=== PATIENT | female | born 1945 | race Caucasian/White ===

== ENCOUNTER 2016-03-18 21:32 | Emergency (ER) | payer BC ==
--- NOTE | 2016-03-18 22:21 | RAD ---
EXAM DESCRIPTION: XR CHEST 2 VIEWS CLINICAL HISTORY: 70 y/o FSHORTNESS OF BREATH COMPARISON: 09/18/2015. FINDINGS: The cardiomediastinal silhouette appears unremarkable. Hyperexpanded lungs. Scarring in the lung apices. No consolidating infiltrates or pleural effusions. No pneumothorax. IMPRESSION: No acute abnormality is identified. COPD. Electronically signed by: Christophe Childers MD 03/18/2016 22:19
[2016-03-18] MEDS ORDERED: IPRATROPIUM/ALBUTEROL 3 ML VIAL NEB ONE ×2 (22:27→22:28)
[2016-03-18 22:33] VITALS: TEMP 98.3
[2016-03-18] MEDS ORDERED: BENZONATATE PERLES 100 MG CAP PO ONE (23:43)
[2016-03-18] MEDS ORDERED: methylPREDNISolone SODIUM SUC 125 MG/2 ML VIAL IV ONE (23:44)
[2016-03-18] MEDS ORDERED: methylPREDNISolone SODIUM SUC 125 MG/2 ML VIAL IM ONE (23:49)
--- NOTE | 2016-03-19 00:35 | ED.PDOC ---
History of Present Illness - General Chief Complaint: Respiratory Problem Stated Complaint: Cough Time Seen by Provider: 03/18/16 22:24 Source: patient, RN notes reviewed, Vital Signs reviewed Exam Limitations: no limitations - History of Present Illness Comments: Patient is a 71 y/o female with a history of COPD who has had a cough for several weeks. It is worsening and she is getting increasingly short of breath. She denies any fever or chills. The cough is non-productive. She has not taken anything for it. Timing/Duration: week - several, getting worse Cough Quality/Degree: moderate, dry cough Improving Factors: nothing Worsening Factors: nothing Associated Symptoms: shortness of breath, wheezing Allergies/Adverse Reactions: Allergies NO KNOWN ALLERGY Allergy (Verified 03/18/16 21:47) Home Medications: Ambulatory Orders Clopidogrel Bisulfate 75 mg PO DAILY 03/14/14 Conjugated Estrogens [Premarin] 1.25 mg PO QD 03/14/14 Gabapentin 600 mg PO BEDTIME 03/14/14 Lansoprazole 30 mg PO BID 03/14/14 Rosuvastatin Calcium [Crestor] 20 mg PO DAILY 03/14/14 Albuterol Sulfate [Proair Hfa] 2 puff INH Q6H PRN 09/16/15 Diclofenac Sodium [Diclofenac Sodium Dr] 50 mg PO BID 09/16/15 Gabapentin 300 mg PO .AFTERNOON 09/16/15 Metoprolol Succinate [Toprol Xl] 200 mg PO DAILY 09/16/15 Mirabegron [Myrbetriq] 25 mg PO DAILY 09/16/15 Albuterol Sulfate Nebs [Proventil Nebs] 2.5 mg INH QID 11/10/15 Azilsartan Medoxomil-Chlorthal [Edarbyclor] 1 tab PO DAILY 11/10/15 Denosumab [Prolia] 60 mg SC ONCE 11/10/15 [place] 3 Fatty Acids-Evening Pr [Retaine Om3] 1 cap PO DAILY 11/10/15 Potassium 99 mg PO DAILY 11/10/15 Tramadol HCl 50 mg PO PRN 11/10/15 Benzonatate 200 mg PO TID PRN #30 cap 03/19/16 Prednisone 50 mg PO DAILY #5 tab 03/19/16 Review of Systems - Review of Systems Constitutional: States: no symptoms reported EENTM: States: no symptoms reported Respiratory: States: cough, short of breath Cardiology: States: no symptoms reported Gastrointestinal/Abdominal: States: no symptoms reported Genitourinary: States: no symptoms reported Musculoskeletal: States: no symptoms reported Skin: States: no symptoms reported Neurological: States: no symptoms reported Endocrine: States: no symptoms reported Hematologic/Lymphatic: States: no symptoms reported Past Medical History (General) - Patient Medical History Hx Seizures: No Hx Stroke: No Hx Dementia: No Hx Asthma: No Hx of COPD: Yes Hx Cardiac Disorders: No Hx Congestive Heart Failure: No Hx Pacemaker: No Hx Hypertension: Yes Hx Thyroid Disease: No Hx Diabetes: No Hx Gastroesophageal Reflux: No Hx Renal Disease: No Hx Cancer: Yes - colon cancer,Renal Hx of HIV: No Hx Hepatitis C: No Hx MRSA: No Surgical History: Hysterectomy - Vaccination History Hx Influenza Vaccination: Yes Hx Pneumococcal Vaccination: Yes - Social History Hx Tobacco Use: Yes Hx Alcohol Use: No Hx Substance Use: No Hx Substance Use Treatment: No Hx Depression: No - Female History Patient is a Female of Child Bearing Age (10 -59 yrs old): No Family Medical History - Family History Mother Family History: No Known Physical Exam - Physical Exam General Appearance: Alert, Anxious, No apparent distress Eye Exam: bilateral normal ENT Exam: normal ENT inspection, hearing grossly normal Respiratory: no respiratory distress, rhonchi, wheezing Cardiovascular/Chest: regular rate, rhythm, no edema, no gallop, no murmur Gastrointestinal/Abdominal: normal bowel sounds, non tender, soft, no organomegaly, no pulsatile mass Extremity: normal range of motion Neurologic: alert, normal mood/affect, oriented x 3 Skin Exam: normal color Progress - Results/Orders Results/Orders: 03/18/16 03/18/16 21:35 22:30 Temperature 98.3 F Pulse Rate 96 H Pulse Rate [RA] 102 H Respiratory 24 20 Rate Blood Pressure 139/82 [RA] O2 Sat by Pulse 93 L 94 L Oximetry Laboratory Results WBC 12.0 K/mm3 (4.8-10.8) H 03/18/16 22:50 RBC 3.99 M/mm3 (4.20-5.40) L 03/18/16 22:50 Hgb 12.2 gm/dL (12.0-16.0) 03/18/16 22:50 Hct 37.5 % (36.0-47.0) 03/18/16 22:50 MCV 93.8 fl (81.0-99.0) 03/18/16 22:50 MCH 30.5 pg (27.0-31.0) 03/18/16 22:50 MCHC 32.5 g/dL (33.0-37.0) L 03/18/16 22:50 RDW 13.3 % (11.5-14.5) 03/18/16 22:50 Plt Count 258 K/mm3 (130-400) 03/18/16 22:50 MPV 7.6 fl (7.40-10.4) 03/18/16 22:50 Absolute Neuts (auto) 9.20 K/uL (1.8-6.8) H 03/18/16 22:50 Absolute Lymphs (auto) 1.30 K/uL (1.0-3.4) 03/18/16 22:50 Absolute Monos (auto) 0.60 K/uL (0.2-0.8) 03/18/16 22:50 Absolute Eos (auto) 0.90 K/uL (0.0-0.4) H 03/18/16 22:50 Absolute Basos (auto) 0.10 K/uL (0.0-0.1) 03/18/16 22:50 Neutrophils % 76.4 % (42.0-78.0) 03/18/16 22:50 Lymphocytes % 10.4 % (20.0-50.0) L 03/18/16 22:50 Monocytes % 5.3 % (2.0-9.0) 03/18/16 22:50 Eosinophils % 7.2 % (1.0-5.0) H 03/18/16 22:50 Basophils % 0.7 % (0.0-2.0) 03/18/16 22:50 Sodium 134 mmol/L (135-145) L 03/18/16 22:50 Potassium 4.4 mmol/L (3.6-5.0) 03/18/16 22:50 Chloride 103 mmol/L (101-111) 03/18/16 22:50 Carbon Dioxide 23 mmol/L (21-31) 03/18/16 22:50 Anion Gap 12.4 (12-18) 03/18/16 22:50 BUN 23 mg/dL (7-18) H 03/18/16 22:50 Creatinine 1.75 mg/dL (0.6-1.3) H 03/18/16 22:50 BUN/Creatinine Ratio 13.1 (10-20) 03/18/16 22:50 Random Glucose 130 mg/dL (70-105) H 03/18/16 22:50 Serum Osmolality 273.7 mOsm/L (275-295) L 03/18/16 22:50 Calcium 8.5 mg/dL (8.4-10.2) 03/18/16 22:50 Total Bilirubin 0.4 mg/dL (0.2-1.0) 03/18/16 22:50 AST 48 IU/L (10-42) H 03/18/16 22:50 ALT 44 IU/L (10-60) 03/18/16 22:50 Alkaline Phosphatase 145 IU/L (42-121) H 03/18/16 22:50 Serum Total Protein 7.3 gm/dL (6.4-8.2) 03/18/16 22:50 Albumin 3.6 g/dl (3.2-5.5) 03/18/16 22:50 Globulin 3.7 gm/dL (2.3-3.5) H 03/18/16 22:50 Albumin/Globulin Ratio 1.0 (1.1-1.9) L 03/18/16 22:50 Serum HCG, Qual Cancelled 03/18/16 23:00 - EKG/XRAY/CT XRAY: chest Xray Comments: COPD, no acute process Departure - Departure Clinical Impression: COPD exacerbation Time of Disposition: 00:37 Disposition: Discharge to Home or Self Care Condition: Good Departure Forms: ED Discharge - Pt. Copy, Patient Portal Self Enrollment Instructions: Chronic Obstructive Pulmonary Disease, DI for Chronic Obstructive Pulmonary Disease Diet: resume usual diet Referrals: Galdino Mandel MD [Primary Care Provider] - 1-2 Weeks Prescriptions: Benzonatate 200 mg PO TID PRN #30 cap PRN Reason: Cough Prednisone 50 mg PO DAILY #5 tab Home Medications: Ambulatory Orders Clopidogrel Bisulfate 75 mg PO DAILY 03/14/14 Conjugated Estrogens [Premarin] 1.25 mg PO QD 03/14/14 Gabapentin 600 mg PO BEDTIME 03/14/14 Lansoprazole 30 mg PO BID 03/14/14 Rosuvastatin Calcium [Crestor] 20 mg PO DAILY 03/14/14 Albuterol Sulfate [Proair Hfa] 2 puff INH Q6H PRN 09/16/15 Diclofenac Sodium [Diclofenac Sodium Dr] 50 mg PO BID 09/16/15 Gabapentin 300 mg PO .AFTERNOON 09/16/15 Metoprolol Succinate [Toprol Xl] 200 mg PO DAILY 09/16/15 Mirabegron [Myrbetriq] 25 mg PO DAILY 09/16/15 Albuterol Sulfate Nebs [Proventil Nebs] 2.5 mg INH QID 11/10/15 Azilsartan Medoxomil-Chlorthal [Edarbyclor] 1 tab PO DAILY 11/10/15 Denosumab [Prolia] 60 mg SC ONCE 11/10/15 [place] 3 Fatty Acids-Evening Pr [Retaine Om3] 1 cap PO DAILY 11/10/15 Potassium 99 mg PO DAILY 11/10/15 Tramadol HCl 50 mg PO PRN 11/10/15 Benzonatate 200 mg PO TID PRN #30 cap 03/19/16 Prednisone 50 mg PO DAILY #5 tab 03/19/16 Additional Instructions: Follow up with PCP if symptoms persist or ED if symptoms worsen.
[2016-03-19 01:13] VITALS: BP 110/63; O2SAT 95
== END 2016-03-19 01:00 | disposition home or self-care (01) ==
LOC: ER 21:32
DX: J44.1 Chronic obstructive pulmonary disease with (acute) exacerbation (principal); I10 Essential (primary) hypertension; Z85.038 Personal history of other malignant neoplasm of large intestine; Z85.53 Personal history of malignant neoplasm of renal pelvis; Z87.891 Personal history of nicotine dependence; Z79.899 Other long term (current) drug therapy

== ENCOUNTER 2016-12-06 07:08 | Emergency (ER) | payer BC ==
[2016-12-06 07:20] VITALS: TEMP 97.9
[2016-12-06] MEDS ORDERED: IPRATROPIUM/ALBUTEROL 3 ML VIAL NEB ONE ×2 (07:20→07:30)
[2016-12-06] MEDS ORDERED: predniSONE 20 MG TAB PO ONE (07:30)
--- NOTE | 2016-12-06 08:00 | RAD ---
EXAM DESCRIPTION: Chest,2 Views CLINICAL HISTORY: sob, copd COMPARISON: October 01, 2016. FINDINGS: 2 views of the thorax. No consolidation, effusion or pneumothorax is demonstrated. Heart and mediastinum within normal limits. No acute osseous pathology. IMPRESSION: Negative chest. Electronically signed by: Abdi Greenberg MD 12/06/2016 7:59 AM CDT
--- NOTE | 2016-12-06 08:15 | ED.PDOC ---
History of Present Illness - General Chief Complaint: Respiratory Problem Stated Complaint: Breathing difficulties Time Seen by Provider: 12/06/16 07:30 Source: patient Exam Limitations: no limitations - History of Present Illness Initial Comments: the patient is a 71-year-old female presenting to the emergency room with progressive shortness of breath and cough along with a mild sore throat for the last 24-36 hours. She does have a history of significant COPD. She has been on steroids on several occasions for it. The patient's wheezing can be heard across the room and her increased work of breath is obvious. She has maintaining oxygen saturations greater than 90%. She does not require any supplemental oxygen. She is not having chest pain. No fevers. No vomiting. No evidence of any sepsis. Cough is minimally productive. Timing/Duration: 24 hours Severity: moderate Improving Factors: nothing Worsening Factors: nothing Associated Symptoms: malaise, shortness of breath Allergies/Adverse Reactions: Allergies NO KNOWN ALLERGY Allergy (Verified 12/06/16 07:16) Home Medications: Ambulatory Orders Clopidogrel Bisulfate 75 mg PO DAILY 03/14/14 Gabapentin 600 mg PO BEDTIME 03/14/14 Lansoprazole 30 mg PO BID 03/14/14 Albuterol Sulfate [Proair Hfa] 2 puff INH Q6H PRN 09/16/15 Diclofenac Sodium [Diclofenac Sodium Dr] 25 mg PO BID 09/16/15 Metoprolol Succinate [Toprol Xl] 200 mg PO DAILY 09/16/15 Mirabegron [Myrbetriq] 25 mg PO DAILY 09/16/15 Albuterol Sulfate Nebs [Proventil Nebs] 2.5 mg INH QID 11/10/15 Azilsartan Medoxomil-Chlorthal [Edarbyclor] 1 tab PO DAILY 11/10/15 Denosumab [Prolia] 60 mg SC .[id number] 11/10/15 [place] 3 Fatty Acids-Evening Pr [Retaine Om3] 1 cap PO DAILY 11/10/15 Estrogens, Conjugated [Premarin] 0.9 mg PO DAILY 12/06/16 Lansoprazole 30 mg PO BID 12/06/16 Rosuvastatin Calcium 20 mg PO DAILY 12/06/16 Tiotropium [place]-Olodaterol [Stiolto Respimat 2.5-2.5 Mcg/Act] 2 puff INH DAILY 12/06/16 traMADol 37.5MG/APAP 325MG [Ultracet] 1 tab PO TID PRN 12/06/16 Review of Systems - Review of Systems Constitutional: States: malaise EENTM: States: throat pain - mild Respiratory: States: cough, short of breath, wheezing Cardiology: States: no symptoms reported Gastrointestinal/Abdominal: States: no symptoms reported Genitourinary: States: no symptoms reported Musculoskeletal: States: no symptoms reported Skin: States: no symptoms reported Neurological: States: no symptoms reported Endocrine: States: no symptoms reported Past Medical History (General) - Patient Medical History Hx Seizures: No Hx Stroke: Yes - TIAs Hx Dementia: No Hx Asthma: No Hx of COPD: Yes Hx Cardiac Disorders: No Hx Congestive Heart Failure: No Hx Pacemaker: No Hx Hypertension: Yes Hx Thyroid Disease: No Hx Diabetes: No Hx Gastroesophageal Reflux: No Hx Renal Disease: No Hx Cancer: Yes - kidney, colon Hx of HIV: No Hx Hepatitis C: No Hx MRSA: No - Vaccination History Hx Influenza Vaccination: Yes - 2015 Hx Pneumococcal Vaccination: Yes - unknown date - Social History Hx Tobacco Use: Yes - Quit 03/15/2016 Hx Alcohol Use: No Hx Substance Use: No Hx Substance Use Treatment: No Hx Depression: No Family Medical History - Family History Mother Family History: No Known Living Status: Age at (years of age): 89 Cause of : CHF Hx Family Hypertension: Yes Physical Exam - Physical Exam General Appearance: Alert, No apparent distress, Other - obvious increased work of breathing Eye Exam: bilateral normal Ears, Nose, Throat: hearing grossly normal, normal ENT inspection, pharyngeal erythema - mild Neck: full range of motion, supple Respiratory: chest non-tender, decreased breath sounds, accessory muscle use, rhonchi, wheezing Cardiovascular/Chest: normal peripheral pulses, regular rate, rhythm, no edema Peripheral Pulses: radial,right: 2+, radial,left: 2+, dorsalis pedis,right: 2+, dorsalis pedis,left: 2+ Gastrointestinal/Abdominal: non tender, soft Rectal Exam: deferred Back Exam: normal inspection, no CVA tenderness, no vertebral tenderness Extremity: normal range of motion, non-tender, normal inspection, no pedal edema , normal capillary refill Neurologic: fuller brush worker II-XII nml as tested, alert, normal mood/affect, oriented x 3 Skin Exam: normal color Comments: Vital Signs - 24 hr 12/06/16 12/06/16 12/06/16 07:12 07:30 08:13 Temperature 97.9 F Pulse Rate 88 Pulse Rate [ 83 84 pulse ox] Respiratory 22 20 20 Rate Blood Pressure 158/89 133/67 [right brachial ] O2 Sat by Pulse 92 L 90 L 92 L Oximetry Progress - Progress Progress: 12/06/16 08:16 the patient is a 71-year-old female with a history of COPD undergoing a significant COPD exacerbation. The patient has been dosed with prednisone and received [id number] DuoNeb's. She is breathing more easily. She is maintaining her oxygen saturations. X-ray shows no definitive evidence of any lobar pneumonia. No evidence of sepsis. At this point in time there are no additional measures that would be taken on this patient that would benefit her additionally as an inpatient. The patient will be placed on oral azithromycin for 5 days as well as oral prednisone at 20 mg daily for 7 days. Additionally she is being written for DuoNeb nebulizer treatments to be used every 2-3 hours for the next couple of days and then as needed. I do want her to follow-up with her primary care doctor tomorrow for reevaluation before the weekend. If she worsens in any significant way then she will need to come into the hospital. ER warnings were given. - Results/Orders Results/Orders: chest x-ray shows no acute changes. Rapid strep and rapid flu are negative. Departure - Departure Clinical Impression: COPD with exacerbation Disposition: Discharge to Home or Self Care Condition: Fair Departure Forms: ED Discharge - Pt. Copy, Patient Portal Self Enrollment Diet: regular diet Activity: increase activity as tolerated Referrals: Galdino Mandel MD [Primary Care Provider] - 1-2 Weeks Home Medications: Ambulatory Orders Clopidogrel Bisulfate 75 mg PO DAILY 03/14/14 Gabapentin 600 mg PO BEDTIME 03/14/14 Lansoprazole 30 mg PO BID 03/14/14 Albuterol Sulfate [Proair Hfa] 2 puff INH Q6H PRN 09/16/15 Diclofenac Sodium [Diclofenac Sodium Dr] 25 mg PO BID 09/16/15 Metoprolol Succinate [Toprol Xl] 200 mg PO DAILY 09/16/15 Mirabegron [Myrbetriq] 25 mg PO DAILY 09/16/15 Albuterol Sulfate Nebs [Proventil Nebs] 2.5 mg INH QID 11/10/15 Azilsartan Medoxomil-Chlorthal [Edarbyclor] 1 tab PO DAILY 11/10/15 Denosumab [Prolia] 60 mg SC .[id number] 11/10/15 [place] 3 Fatty Acids-Evening Pr [Retaine Om3] 1 cap PO DAILY 11/10/15 Estrogens, Conjugated [Premarin] 0.9 mg PO DAILY 12/06/16 Lansoprazole 30 mg PO BID 12/06/16 Rosuvastatin Calcium 20 mg PO DAILY 12/06/16 Tiotropium [place]-Olodaterol [Stiolto Respimat 2.5-2.5 Mcg/Act] 2 puff INH DAILY 12/06/16 traMADol 37.5MG/APAP 325MG [Ultracet] 1 tab PO TID PRN 12/06/16 Additional Instructions: the patient is a 71-year-old female with a history of COPD undergoing a significant COPD exacerbation. The patient has been dosed with prednisone and received [id number] DuoNeb's. She is breathing more easily. She is maintaining her oxygen saturations. X-ray shows no definitive evidence of any lobar pneumonia. No evidence of sepsis. At this point in time there are no additional measures that would be taken on this patient that would benefit her additionally as an inpatient. The patient will be placed on oral azithromycin for 5 days as well as oral prednisone at 20 mg daily for 7 days. Additionally she is being written for DuoNeb nebulizer treatments to be used every 2-3 hours for the next couple of days and then as needed. I do want her to follow-up with her primary care doctor tomorrow for reevaluation before the weekend. If she worsens in any significant way then she will need to come into the hospital. ER warnings were given. prescriptions were written out.
[2016-12-06 08:28] VITALS: BP 109/68; O2SAT 90
== END 2016-12-06 08:15 | disposition home or self-care (01) ==
LOC: ER 07:08
DX: J44.1 Chronic obstructive pulmonary disease with (acute) exacerbation (principal); I10 Essential (primary) hypertension; Z87.891 Personal history of nicotine dependence; Z86.73 Personal history of transient ischemic attack (TIA), and cerebral infarction without residual deficits; Z79.899 Other long term (current) drug therapy; Z79.02 Long term (current) use of antithrombotics/antiplatelets
CPT/HCPCS: 71020; 87070; 87502; 87651; 94640; J7512; J7620

== ENCOUNTER → 2017-08-01 | Outpatient (CLI) | payer BC | LOC: GMAJ 14:26 | PROVIDERS: ATTEND Family Medicine | DX: Z00.00 Encounter for general adult medical examination without abnormal findings (principal) ==

== ENCOUNTER → 2018-01-29 | Outpatient (CLI) | payer BC ==
--- NOTE | 2018-01-29 14:17 | CT ---
Procedure: CT LUNG SCREENING Exam Date: 11/29/2017. Ordering Provider: Lucho Hughes Clinical Indication: PERSONAL HISTORY OF TOBACCO DEPENDENCY This patient meets eligibility criteria for low-dose CT lung cancer screening. Comparison: CTA chest 03/14/2014. Technique: Using a multislice scanner, sequential helical axial imaging was obtained in the thorax, 2.5 mm thickness, 2.5 mm separation, from the level of the thoracic inlet through the lung bases without IV contrast. A low dose protocol was utilized: CTDI: 1.76 mGy. 120. kVp. 45 mA. 2D sagittal and coronal reconstructed images, 6.0 mm thickness, were obtained. This exam was performed according to our departmental dose optimization program which includes use of automated exposure control, adjustment of the mA and/or kV according to patient size and/or use of iterative reconstruction technique. Nodule measurements under 10 mm are given as mean value of 3 axes diameters. FINDINGS: Lungs and large airways: 6 mm solid nodule, circumscribed walter, posterior right apex with extension to the pleura on lung axial image 28. Posterior densities in the recess of the right lower lobe most likely atelectasis. Subpleural solid nodule with circumscribed walter medial left lower lobe on axial image 94, 3 mm diameter. Semisolid nodule lateral left upper lobe subpleural approximately 3 mm with 3 other nodules similar size and density images 33, 36 and 37. Minimal dependent atelectasis posterior left lower lobe in the posterior recess. No larger nodules, no masses or infiltrates. Pleura: Bilateral focal areas of pleural thickening. No effusion or pneumothorax. Mediastinum and sindy: evaluation limited by low dose technique and lack of IV contrast. Small mediastinal lymph nodes, no large soft tissue masses. Heart and great vessels: Coronary artery calcifications. Atherosclerotic calcifications in the aortic arch, descending thoracic aorta, and proximal brachiocephalic vessels. Chest wall, lower neck, axillae: Evaluation also limited by same factors as described above. Collapsed left breast implant retroglandular right breast implant normal size and position. Small thyroid gland. Upper abdomen: Negative. Osseous structures: Evaluation limited by low dose MIP technique. Minimal spondylosis in the thoracic spine. No lytic or blastic lesions. IMPRESSION: 6 mm solid nodule in the posterior right upper lobe most likely associated with pleural thickening which is also visualized adjacent pleura. Similar tissue noted on prior chest CT scan in 2013. Change in size probably secondary change in technique. Other nodules seen bilaterally are 3 mm or less in diameter. Bilateral bibasilar parenchymal density in the bilateral lower lung recesses is stable. No large or abnormal nodules, no infiltrates or masses bilaterally. No pleural effusion or pneumothorax. [facility] Best Practice recommendations according to lung RADS system. Please see below for Lung RADS category and FOLLOW-UP.* *Lung RADS category Category 3 - Probably benign (1-2% malignancy probability), short term follow-up suggested. Nodules: Solid nodule(s) 6mm to less than 8mm at baseline, or new 4mm to under 6mm solid nodule. Part solid nodule total diameter 6mm to less than 8mm with solid component less than 6mm, or new less than 6mm total diameter nodule] [ground glass nodule(s) 20mm or greater. Follow-up: Please return for a Low Dose Chest CT in 6 months for re-evaluation. Electronically signed by: Freeman Sher MD 01/29/2018 2:15 PM [facility]
== END ==
LOC: CT 08:00
PROVIDERS: ATTEND Family Medicine
DX: Z87.891 Personal history of nicotine dependence (principal); R91.8 Other nonspecific abnormal finding of lung field

== ENCOUNTER → 2018-02-24 | Outpatient (CLI) | payer MEDICARE, OTHER | LOC: GMAJ 16:50 | PROVIDERS: ATTEND Family Medicine | DX: M18.0 Bilateral primary osteoarthritis of first carpometacarpal joints (principal) ==

== ENCOUNTER → 2018-07-16 | Outpatient (CLI) | payer MEDICARE, OTHER ==
--- NOTE | 2018-07-16 10:46 | CT ---
EXAM DESCRIPTION: Chest w/o Contrast CLINICAL HISTORY: 73 years Female, LUNG NODULE, PERSONAL HISTORY OF TOBACCO USE COMPARISON: CT lung screening 01/29/2018. CTA chest 03/06/2014. TECHNIQUE: CT images through the chest without IV contrast. Multiplanar reformations were provided. This exam was performed according to our departmental dose-optimization program, which includes automated exposure control, adjustment of the mA and/or kV according to patient size and/or use of iterative reconstruction technique. CT CHEST FINDINGS: Heart and mediastinum: Heart is normal size. No severe pericardial mild atherosclerosis. Esophagus is unremarkable. No mediastinal lymphadenopathy. Evaluation for hilar lymphadenopathy limited without intravenous contrast. Thyroid Gland: Normal. Lungs: Stable 7 mm right upper lobe pulmonary nodule on image 28. A group of 3 pulmonary nodules within the lateral left upper lobe on image 38 measuring no greater than 4 mm as before. Stable group of 2 pulmonary nodules in the medial left lower lobe on image 97 measuring no greater than 4 mm. 2 mm nodule in the lateral left lower lobe on image 95 appears new when compared to 01/29/2018. Airways: No filling defects or bronchiectasis. Pleura: No effusion or pneumothorax. Subphrenic Structures: Surgical clips within the right renal nephrectomy site. Musculoskeletal and Soft Tissues: Stable collapsed and partially calcified left breast implant. Right breast implant is maintained. No axillary lymphadenopathy. Chronic right second, third, fourth rib fractures. No acute fracture acute compression deformity. No aggressive appearing osseous lesion. Advanced cervical spondylosis at C6-C7. IMPRESSION: 1. No acute abnormality of the chest. 2. Bilateral pulmonary nodules are unchanged when compared to 01/29/2018 with the exception of a new 2 mm pulmonary nodule in the left lower lobe as above. Recommend follow-up per the Fleischner guidelines below. 3. Other chronic findings as above. Multiple Solid lung nodules 6-8 mm: Follow up management based on most suspicious nodule. In a low-risk patient, recommend a non-contrast Chest CT at 3-6 months, then consider another non-contrast Chest CT at 18-24 months. In a high-risk patient, recommend a non-contrast Chest CT at 3-6 months, then another non-contrast Chest CT at 18-24 months. These guidelines do not apply to patients younger than 35 years, immunocompromised patients, and patients with cancer. F/u in patients with significant comorbidities as clinically warranted. For lung cancer screening, adhere to Lung-RADS guidelines. Reference: Radiology. 2017 Sep; 284(1):228-24 Electronically signed by: Joshua Eckert MD 07/16/2018 10:44 AM CDT
== END ==
LOC: CT 08:00
PROVIDERS: ATTEND Family Medicine
DX: Z87.891 Personal history of nicotine dependence (principal); R91.1 Solitary pulmonary nodule

== ENCOUNTER → 2019-01-20 | Outpatient (CLI) | payer MEDICARE, OTHER ==
--- NOTE | 2019-01-20 10:48 | CT ---
EXAM DESCRIPTION: Head CT without contrast CLINICAL HISTORY: HEADACHE COMPARISON: Previous CT head July 26, 2009, previous MRI brain August 31, 2011 TECHNIQUE: Noncontrast head CT was performed with routine protocol. FINDINGS: Normal gaffney-white matter differentiation. Ventricles and sulci are normal for age. No worrisome change compared to previous studies. No high density hemorrhage, focal edema or shift of the midline. No sulcal effacement. Normal orbital contents. Basilar cisterns appear clear. Intact calvarium with no fracture or lytic lesion. Normal aeration of tympanic cavities and mastoid air cells. No fluid levels in the paranasal sinuses. Skull base appears intact. Symmetrical internal auditory canals. IMPRESSION: No acute intracranial pathologic process. This exam was performed according to our departmental dose-optimization program, which includes automated exposure control, adjustment of the mA and/or kV according to patient size and/or use of iterative reconstruction technique. Total DLP equals 752.48 mGycm. Electronically signed by: Teddy Colon MD 01/20/2019 10:04 AM [facility]
== END ==
LOC: CT 09:30
PROVIDERS: ATTEND Family Medicine
DX: R51 Headache (principal)

== ENCOUNTER → 2019-11-25 | Outpatient (CLI) | payer MEDICARE, OTHER ==
--- NOTE | 2019-11-26 14:53 | CT ---
Procedure: CT LUNG SCREENING Exam Date: November 25, 2019. Ordering Provider: Lucho Hughes Clinical Indication: PERSONAL HISTORY OF TOBACCO DEPENDENCE smoking cessation x4 years. 30 pack-year history. This patient meets eligibility criteria for low-dose CT lung cancer screening. Comparison: CT scan of the chest without contrast July 2018. Lung RADS category 3. CT low-dose lung cancer screening examination of January 2018. Technique: Using a multislice scanner, sequential helical axial imaging was obtained in the thorax, 2.5 mm thickness, 2.5 mm separation, from the level of the thoracic inlet through the lung bases without IV contrast. A low dose protocol was utilized for BMI less than 30: BMI: 25.8. CTDI: 1.76 mGy. 120. kVp. 45 mA. DLP 66 mGy-cm. 2D sagittal and coronal reconstructed images, 6.0 mm thickness, were obtained. This exam was performed according to our departmental dose optimization program which includes use of automated exposure control, adjustment of the mA and/or kV according to patient size and/or use of iterative reconstruction technique. Nodule measurements under 10 mm are given as mean value of 3 axes diameters. FINDINGS: Lungs and large airways: Subpleural solid nodule 3 mm left lower lobe on axial series 2, #87 is stable. 2-3 mm subpleural nodules abutting each other in the subpleural medial left lower lobe on images 2/88 and 2/89 stable since the prior study. 2 similar solid subpleural nodules approximately 3 mm diameter, lateral left upper lobe on image 2/32. Smaller, subpleural nodules in the anterior left upper lobe in the superior segment of the left lower lobe on images 2/41 and 2/47. Similar size groundglass nodular subpleural lateral left upper lobe 2/51 and also lateral subpleural groundglass nodule in the inferior lingula similar size. Posterior right apical focal pleural thickening/scar is stable on image 2/22 posterior dependent atelectasis more right base than left. No abnormal/new nodules and no mass. No new focal infiltrates. Pleura and space: Bilateral apical thickening with no acute process. Mediastinum and sindy: evaluation limited by low dose technique and lack of IV contrast. Small lymph nodes are stable with no dominant soft tissue mass. Heart and great vessels: Coronary artery calcifications. Calcifications in the aorta and brachiocephalic vessels. Stable. Chest wall, lower neck, axillae: Evaluation also limited by same factors as described above. Retroglandular right breast implant. Left breast implant is collapsed. No interval change. Stable small axillary nodes. Upper abdomen: Evaluation limited by low-dose technique. Multiple gravity dependent radiodense gallstones. Normal density and size of the adrenal glands and spleen. Surgical clips right renal fossa with no fluid. Osseous structures: Evaluation limited by low dose MIP technique. Narrowed and upper thoracic disc spaces. Old rib fractures right second third and fourth lateral and posterior. Minimal arthrosis shoulder-, clavicle-sternal joints. IMPRESSION: Multiple bilateral subpleural solid and groundglass nodules which are not significant in size and stable since the prior study.. [facility] Best Practice Recommendations: please see below for Lung RADS category and FOLLOW-UP.* *Lung RADS category CATEGORY 2- Nodules with a very low likelihood (less than 1%) of becoming a clinically active cancer due to size or lack of growth. Nodules: Perifissural nodule(s) < 10 mm. (526mm3). Solid or part solid nodule(s) less than 6mm (113.1 mm3), new solid nodule less than 4mm (33.5 mm3). Ground glass nodule(s) less than 30mm (57289.2 mm3) or unchanged or slow growing ground glass nodule 30mm or greater. Cat 3 or 4 nodule unchanged for 3 or more months. FOLLOW-UP: Continue annual screening with a Low Dose Chest CT in 12 months for re-evaluation. Electronically signed by: Freeman Sher MD 11/26/2019 2:51 PM CDT
== END ==
LOC: CT 10:52
PROVIDERS: ATTEND Family Medicine
DX: Z87.891 Personal history of nicotine dependence (principal); Z12.2 Encounter for screening for malignant neoplasm of respiratory organs; R91.8 Other nonspecific abnormal finding of lung field